=== PATIENT | female | born 1970 | race Caucasian/White ===

== ENCOUNTER 2017-05-25 10:02 | Inpatient (IN) | payer BC ==
[2017-05-25] MEDS ORDERED: ONDANSETRON 4 MG/2 ML VIAL IVP STA (10:35)
[2017-05-25] MEDS ORDERED: SODIUM CHLORIDE 0.9% 2,000 ML IV STA (10:35)
[2017-05-25 11:20] LABS: Albumin 5.3 g/dL (3.5-5.0); Potassium 3.2 mmol/L (3.5-5.1); Total Bilirubin 2.3 mg/dL (0.2-1.3)
[2017-05-25 11:30] LABS: Basophils % (A) 0 %; Eosinophils % (A) 0 %; HCT 41.9 % (34.0-46.0); HGB 13.6 gm/dL (11.4-16.0); Lymphocytes # (A) 0.4 k/uL (1.0-4.8); Lymphocytes % (A) 4 %; MCH 35.1 pg (25.0-35.0); MCHC 32.6 g/dL (31.0-37.0); MCV 107.9 fL (80.0-100.0); Macrocytosis Moderate; Mean Platelet Volume 9.3; Monocytes # (A) 0.6 k/uL (0-1.0); Monocytes % (A) 6 %; Neutrophils # (A) 9.6 k/uL (1.3-7.7); Neutrophils % (A) 89 %; Platelet Count 136 k/uL (150-450); RBC 3.88 m/uL (3.80-5.40); WBC 10.8 k/uL (3.8-10.6)
--- NOTE | 2017-05-25 12:46 | ED ---
Nausea/Vomiting/Diarrhea HPI - General Source: patient, RN notes reviewed Mode of arrival: ambulatory Limitations: no limitations <Heri Loomis - Last Filed: 05/25/17 13:43> <Rivera Fong - Last Filed: 05/25/17 13:46> - General Chief complaint: Nausea/Vomiting/Diarrhea Stated complaint: Flu Time Seen by Provider: 05/25/17 10:20 - History of Present Illness Initial comments: This a 46-year-old female presents emergency Department chief complaint of nausea vomiting for 4 days. Patient does complain of some mild upper abdominal pain states the pain started after her vomiting episodes. She states that she' s basically been dry heaving or vomiting up anything she tries to drink. Patient denies fever, chills. She does admit to history of alcohol abuse she states currently she drinks 3 times weekly. Patient denies any fever, chills, chest pain, shortness breath, diarrhea, constipation, dysuria or hematuria. ( Heri Loomis) - Related Data Home Medications Medication Instructions Recorded Confirmed No Known Home Medications [No 05/25/17 05/25/17 Known Home Medications] Allergies Allergy/AdvReac Type Severity Reaction Status Date / Time No Known Allergies Allergy Verified 05/25/17 10:33 Review of Systems ROS Other: All systems not noted in ROS Statement are negative. <Heri Loomis - Last Filed: 05/25/17 13:43> ROS Other: All systems not noted in ROS Statement are negative. <Rivera Fong - Last Filed: 05/25/17 13:46> ROS Statement: Those systems with pertinent positive or pertinent negative responses have been documented in the HPI. Past Medical History Past Medical History: No Reported History History of Any Multi-Drug Resistant Organisms: None Reported Past Surgical History: No Surgical Hx Reported Past Psychological History: No Psychological Hx Reported Smoking Status: Never smoker Past Alcohol Use History: Daily Past Drug Use History: None Reported <Heri Loomis - Last Filed: 05/25/17 13:43> General Exam Limitations: no limitations General appearance: alert, in no apparent distress Head exam: Present: atraumatic, normocephalic, normal inspection Eye exam: Present: normal appearance, PERRL, EOMI. Absent: scleral icterus, conjunctival injection, periorbital swelling Respiratory exam: Present: normal lung sounds bilaterally. Absent: respiratory distress, wheezes, rales, rhonchi, stridor Cardiovascular Exam: Present: regular rate, normal rhythm, normal heart sounds. Absent: systolic murmur, diastolic murmur, rubs, gallop, clicks GI/Abdominal exam: Present: soft, tenderness (Mild upper abdominal tenderness), normal bowel sounds. Absent: distended, guarding, rebound, rigid Back exam: Absent: CVA tenderness (R), CVA tenderness (L) Skin exam: Present: warm, dry, intact, normal color. Absent: rash <Heri Loomis - Last Filed: 05/25/17 13:43> Course <Heri Loomis - Last Filed: 05/25/17 13:43> <Rivera Fong - Last Filed: 05/25/17 13:46> Vital Signs 05/25/17 05/25/17 10:24 12:26 Temperature 97.8 F 99.8 F H Pulse Rate 133 H 115 H Respiratory 20 18 Rate Blood Pressure 143/97 143/97 O2 Sat by Pulse 100 98 Oximetry - Reevaluation(s) Reevaluation #1: 05/25/17 13:44 PA supervision: I did personally do a [id number] evaluation of this patient and did discuss the findings with her. Patient does present with symptoms consistent with acute pancreatitis, she states she drinks about 4 drinks 4 days a week. She denies any history of alcohol withdrawal syndromes. The case was discussed with the hospitalist. Patient will be admitted and do agree with the assessment and plan. Ultrasound was reviewed somewhat limited correlate for hepatic steatosis there may be sludge, a hearing stone within the gallbladder, consider follow-up to exclude a soft tissue mass. (Rivera Fong) Medical Decision Making - Lab Data Result diagrams: 05/25/17 10:54 05/25/17 10:54 <Heri Loomis - Last Filed: 05/25/17 13:43> - Lab Data Result diagrams: 05/25/17 10:54 05/25/17 10:54 <Rivera Fong - Last Filed: 05/25/17 13:46> - Lab Data Lab Results 05/25/17 05/25/17 05/25/17 Range/Units 10:54 10:54 10:54 WBC 10.8 H (3.8-10.6) k/uL RBC 3.88 (3.80-5.40) m/uL Hgb 13.6 (11.4-16.0) gm/dL Hct 41.9 (34.0-46.0) % MCV 107.9 H (80.0-100.0) fL MCH 35.1 H (25.0-35.0) pg MCHC 32.6 (31.0-37.0) g/dL RDW 13.0 (11.5-15.5) % Plt Count 136 L (150-450) k/uL Neutrophils % 89 % Lymphocytes % 4 % Monocytes % 6 % Eosinophils % 0 % Basophils % 0 % Neutrophils # 9.6 H (1.3-7.7) k/uL Lymphocytes # 0.4 L (1.0-4.8) k/uL Monocytes # 0.6 (0-1.0) k/uL Eosinophils # 0.0 (0-0.7) k/uL Basophils # 0.0 (0-0.2) k/uL Macrocytosis Moderate Sodium 141 (137-145) mmol/L Potassium 3.2 L (3.5-5.1) mmol/L Chloride 89 L (98-107) mmol/L Carbon Dioxide 15 L (22-30) mmol/L Anion Gap 37 mmol/L BUN 21 H (7-17) mg/dL Creatinine 1.39 H (0.52-1.04) mg/dL Est GFR (MDRD) Af Amer 49 (>60 ml/min/1.73 sqM) Est GFR (MDRD) Non-Af 41 (>60 ml/min/1.73 sqM) Glucose 184 H (74-99) mg/dL Calcium 11.0 H (8.4-10.2) mg/dL Total Bilirubin 2.3 H (0.2-1.3) mg/dL AST 103 H (14-36) U/L ALT 49 (9-52) U/L Alkaline Phosphatase 115 (38-126) U/L Total Protein 9.0 H (6.3-8.2) g/dL Albumin 5.3 H (3.5-5.0) g/dL Amylase 181 H (30-110) U/L Lipase 2400 H (23-300) U/L Disposition <Heri Loomis - Last Filed: 05/25/17 13:43> <Rivera Fong - Last Filed: 05/25/17 13:46> Clinical Impression: Dehydration, Acute renal failure, Acute pancreatitis, Alcohol abuse Disposition: ADMITTED IP TO THIS HOSP Condition: Fair Referrals: Heri Colbert DO [Primary Care Provider] - 1-2 days
--- NOTE | 2017-05-25 13:37 | US ---
EXAMINATION TYPE: US abdomen limited DATE OF EXAM: 05/25/2017 COMPARISON: NONE CLINICAL HISTORY: Pain. EXAM MEASUREMENTS: Liver Length: 12.6 cm Gallbladder Wall: 0.2 cm CBD: 0.2 cm Right Kidney: 11.7 x 5.1 x 5.3 cm Pancreas: Tail obscured by overlying bowel gas Liver: Increased attenuation, decreased visualization of vessels suggestive of fatty infiltrate Gallbladder: fundal portion of gallbladder shows non mobile structure with no shadowing Evidence for sonographic Maguire's sign: none CBD: wnl Right Kidney: wnl IMPRESSION: Exam somewhat limited. Correlate for hepatic steatosis. There may be tumefactive sludge, adherent stone within the gallbladder, consider follow-up to exclude soft tissue mass
[2017-05-25] MEDS ORDERED: POTASSIUM CHLORIDE 20 MEQ in SODIUM CHLORIDE 0.9% 100 ML IVPB STA (13:39)
[2017-05-25] MEDS ORDERED: LORazepam 2 MG/ML INJ IV PRN ×3 (13:40)
[2017-05-25] MEDS ORDERED: ONDANSETRON 4 MG/2 ML VIAL IVP PRN (13:44)
[2017-05-25] MEDS ORDERED: NALOXONE 0.4 MG/ML 1 ML VIAL IV PRN (13:44)
[2017-05-25 14:51] LABS: Amorphous Sediment,Urine Occasional /hpf; Appearance,Urine Cloudy (Clear); Bacteria,Urine Rare /hpf; Bilirubin,Urine 2+ (Negative); Blood,Urine Moderate (Negative); Color,Urine Orange; Glucose,Urine (UA) Trace (Negative); Hyaline Casts,Urine 957 /lpf (0-2); Ketones,Urine 4+ (Negative); Leukocyte Esterase,Urine Trace (Negative); Mucus,Urine Many /hpf; Nitrite,Urine Negative (Negative); PH, Urine 6.5 (5.0-8.0); Protein,Urine 4+ (Negative); RBC,Urine 4 /hpf (0-5); Specific Gravity,Urine 1.025 (1.001-1.035); Squamous Epithelial Cell,Urine 15 /hpf (0-4); WBC,Urine 23 /hpf (0-5)
[2017-05-25] MEDS ORDERED: INFLUENZA VACCINE (6 MOS+) 60 MCG/0.5 ML SYRINGE IM ONE (15:13)
[2017-05-25] MEDS: HYDROmorphone 0.5 MG/0.5 ML SYRINGE IVP PRN ×3 (16:49→23:29)
[2017-05-25] MEDS: SODIUM CHLORIDE 0.9% 1,000 ML IV SCH (16:53)
[2017-05-25] MEDS: THIAMINE 100 MG TAB PO SCH (18:29)
--- NOTE | 2017-05-25 21:47 | P.HPIM ---
History of Present Illness H&P Date: 05/25/17 Chief Complaint: Nausea vomiting Patient is a 46-year-old female with a known history of alcohol abuse about 3-4 days a week came to the hospital with complaints of nausea and vomiting and unable to keep down any foods for the past 2 days. Patient also having epigastric abdominal pain. Denied any radiation to the back. Patient states that the pain started after her vomiting episodes. She states that she's basically been dry heaving or vomiting up anything she tries to drink. She does admit to history of alcohol abuse she states currently she drinks 3-4 times weekly. Patient denies any fever, chills, chest pain, shortness breath, diarrhea, constipation, dysuria or hematuria. Last drink about 3-4 days ago. Lipase 2400, elevated AST Review of Systems Constitutional: Patient denies any fever or chills . No generalized weakness or weight loss. Abdomen: A suero does have nausea vomiting and abdominal pain epigastric. Cardiovascular: Patient denies any chest pain or short of breath no palpitations. Respiratory: patient denied any cough is from production. No shortness of breath Neurologic: Patient denied any numbness or tingling headache. Musculoskeletal: Patient denies any complaints of joint swelling or deformity. Skin: Negative Psychiatric: Negative Endocrine: No heat or cold intolerance. No recent weight gain. Genitourinary: No dysuria or hematuria. All other 14 point ROS negative except the above Past Medical History Past Medical History: No Reported History Additional Past Medical History / Comment(s): pt stated in past bp was elevated but no meds but since losing weight bp improved. also in past took meds for thyroid stopped few months ago History of Any Multi-Drug Resistant Organisms: None Reported Past Surgical History: No Surgical Hx Reported Additional Past Surgical History / Comment(s): pt denies any sx hx. Past Psychological History: No Psychological Hx Reported Additional Psychological History / Comment(s): pt lives with spouse and 2 children in 2 story home that has 2 porch steps. 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 Smoking Status: Former smoker Past Alcohol Use History: Heavy Additional Past Alcohol Use History / Comment(s): pt started smoking at age 14( 1984) and quit age 23(1993) was smoking 2 ppd. pt stated she does'nt drink daily , maybe 3-4 times a week but takes in aprox 16 drinks per week Past Drug Use History: None Reported - Past Family History Mother Family Medical History: No Reported History Father Family Medical History: Coronary Artery Disease (CAD) Additional Family Medical History / Comment(s): cardiac stents Medications and Allergies Home Medications Medication Instructions Recorded Confirmed Type No Known Home Medications [No 05/25/17 05/25/17 History Known Home Medications] Allergies Allergy/AdvReac Type Severity Reaction Status Date / Time No Known Allergies Allergy Verified 05/25/17 10:33 Physical Exam Vitals: Vital Signs Temp Pulse Pulse Resp BP BP Pulse Ox 05/25/17 15:59 98.4 F 115 H 18 131/95 99 05/25/17 15:27 98.4 F 115 H 18 131/95 99 05/25/17 14:39 98.0 F 114 H 18 153/88 98 05/25/17 12:26 99.8 F H 115 H 18 143/97 98 05/25/17 10:24 97.8 F 133 H 20 143/97 100 Intake and Output 05/25/17 05/25/17 05/25/17 06:59 14:59 22:59 Other: Weight 72.575 kg Patient Weight 05/26/17 06:59 Weight 72.575 kg PHYSICAL EXAMINATION: Patient is lying in the bed comfortably, no acute distress, awake alert and oriented.. HEENT: Normocephalic. Neck is supple. Pupils reactive. Nostrils clear. Oral cavity is moist. Ears reveal no drainage. Neck reveals no JVD, carotid bruits, or thyromegaly. CHEST EXAMINATION: Trachea is central. Symmetrical expansion. Lung riojas clear to auscultation and percussion. CARDIAC: Normal S1, S2 with no gallops. No murmurs ABDOMEN: Soft. Mild epigastric tenderness. Bowel sounds normal. No organomegaly. No abdominal bruits. Extremities: reveal no edema. No clubbing or cyanosis Neurologically awake, alert, oriented x3 with well-coordinated movements. No focal deficits noted Skin: No rash or skin lesions. Psychiatric: Coperative. Nonsuicidal Musculoskeletal: No joint swelling or deformity. Normal range of motion. Results CBC & Chem 7: 05/25/17 10:54 05/25/17 10:54 Labs: Abnormal Lab Results - Last 24 Hours (Table) 05/25/17 05/25/17 05/25/17 Range/Units 10:54 10:54 10:54 WBC 10.8 H (3.8-10.6) k/uL MCV 107.9 H (80.0-100.0) fL MCH 35.1 H (25.0-35.0) pg Plt Count 136 L (150-450) k/uL Neutrophils # 9.6 H (1.3-7.7) k/uL Lymphocytes # 0.4 L (1.0-4.8) k/uL Potassium 3.2 L (3.5-5.1) mmol/L Chloride 89 L (98-107) mmol/L Carbon Dioxide 15 L (22-30) mmol/L BUN 21 H (7-17) mg/dL Creatinine 1.39 H (0.52-1.04) mg/dL Glucose 184 H (74-99) mg/dL Calcium 11.0 H (8.4-10.2) mg/dL Magnesium (1.6-2.3) mg/dL Total Bilirubin 2.3 H (0.2-1.3) mg/dL AST 103 H (14-36) U/L Total Protein 9.0 H (6.3-8.2) g/dL Albumin 5.3 H (3.5-5.0) g/dL Amylase 181 H (30-110) U/L Lipase 2400 H (23-300) U/L Urine Appearance (Clear) Urine Protein (Negative) Urine Glucose (UA) (Negative) Urine Ketones (Negative) Urine Blood (Negative) Urine Bilirubin (Negative) Ur Leukocyte Esterase (Negative) Urine WBC (0-5) /hpf Ur Squamous Epith Cells (0-4) /hpf Amorphous Sediment (None) /hpf Urine Bacteria (None) /hpf Hyaline Casts (0-2) /lpf Urine Mucus (None) /hpf 05/25/17 05/25/17 Range/Units 10:54 14:25 WBC (3.8-10.6) k/uL MCV (80.0-100.0) fL MCH (25.0-35.0) pg Plt Count (150-450) k/uL Neutrophils # (1.3-7.7) k/uL Lymphocytes # (1.0-4.8) k/uL Potassium (3.5-5.1) mmol/L Chloride (98-107) mmol/L Carbon Dioxide (22-30) mmol/L BUN (7-17) mg/dL Creatinine (0.52-1.04) mg/dL Glucose (74-99) mg/dL Calcium (8.4-10.2) mg/dL Magnesium 1.3 L (1.6-2.3) mg/dL Total Bilirubin (0.2-1.3) mg/dL AST (14-36) U/L Total Protein (6.3-8.2) g/dL Albumin (3.5-5.0) g/dL Amylase (30-110) U/L Lipase (23-300) U/L Urine Appearance Cloudy H (Clear) Urine Protein 4+ H (Negative) Urine Glucose (UA) Trace H (Negative) Urine Ketones 4+ H (Negative) Urine Blood Moderate H (Negative) Urine Bilirubin 2+ H (Negative) Ur Leukocyte Esterase Trace H (Negative) Urine WBC 23 H (0-5) /hpf Ur Squamous Epith Cells 15 H (0-4) /hpf Amorphous Sediment Occasional H (None) /hpf Urine Bacteria Rare H (None) /hpf Hyaline Casts 957 H (0-2) /lpf Urine Mucus Many H (None) /hpf Thrombosis Risk Factor Assmnt - DVT/VTE Prophylaxis DVT/VTE Prophylaxis: Pharmacologic Prophylaxis ordered Assessment and Plan Assessment: Acute pancreatitis Severe anion gap metabolic acidosis Alcohol abuse 12 cans 3-4 times weekly Hypomagnesemia and hypokalemia Elevated AST Hyperbilirubinemia Acute kidney injury most likely prerenal DVT prophylaxis Plan: Patient be continued on IV fluids and pain medications. Symptomatic management for nausea and vomiting. Continue with thiamine and multivitamins. Will repeat labs tonight and follow-up again tomorrow. Further recommendations based on the clinical course. Patient has been counseled extensively for alcohol abuse Time with Patient: Greater than 30
[2017-05-25 22:00] LABS: Anion Gap 20 mmol/L; Blood Urea Nitrogen 23 mg/dL (7-17); Carbon Dioxide 24 mmol/L (22-30); Chloride 96 mmol/L (98-107); Glucose 116 mg/dL (74-99); Potassium 3.7 mmol/L (3.5-5.1); Sodium 140 mmol/L (137-145)
[2017-05-26] MEDS: SODIUM CHLORIDE 0.9% 1,000 ML IV SCH ×3 (05:39→12:59)
[2017-05-26] MEDS: PANTOPRAZOLE 40 MG/10 ML VIAL IV SCH (07:55)
[2017-05-26] MEDS: THIAMINE 100 MG TAB PO SCH ×2 (07:55→16:25)
[2017-05-26] MEDS: HYDROmorphone 0.5 MG/0.5 ML SYRINGE IVP PRN ×5 (07:56→22:38)
[2017-05-26 08:37] LABS: Amylase 85 U/L (30-110); Anion Gap 16 mmol/L; Blood Urea Nitrogen 21 mg/dL (7-17); Calcium 9.5 mg/dL (8.4-10.2); Carbon Dioxide 27 mmol/L (22-30); Chloride 98 mmol/L (98-107); Glucose 97 mg/dL (74-99); Lipase 1034 U/L (23-300); Potassium 3.6 mmol/L (3.5-5.1); Sodium 141 mmol/L (137-145)
[2017-05-26 09:15] LABS: Basophils % (A) 1 %; Eosinophils % (A) 0 %; HCT 34.6 % (34.0-46.0); HGB 11.8 gm/dL (11.4-16.0); Lymphocytes % (A) 14 %; MCH 36.6 pg (25.0-35.0); MCHC 34.1 g/dL (31.0-37.0); MCV 107.1 fL (80.0-100.0); Macrocytosis Moderate; Mean Platelet Volume 8.8; Monocytes # (A) 0.4 k/uL (0-1.0); Monocytes % (A) 5 %; Neutrophils # (A) 5.9 k/uL (1.3-7.7); Neutrophils % (A) 79 %; Platelet Count 100 k/uL (150-450); RBC 3.23 m/uL (3.80-5.40); RDW 12.9 % (11.5-15.5); WBC 7.4 k/uL (3.8-10.6)
--- NOTE | 2017-05-26 11:16 | P.CONS ---
History of Present Illness - Reason for Consult Consult date: 05/26/17 pancreatitis Requesting physician: Deandre Sr - History of Present Illness 46-year-old female with a history of long-standing EtOH abuse drinks 3-4 days a week 3-4 drinks on each occasion mixture of beer and liquor. Patient presents with 4 day history of nausea vomiting upper abdominal pain with elevated pancreatic enzymes consistent with acute pancreatitis. No history of documented pancreatitis. Denies fever chills hematemesis hematochezia melena. No history of hepatitis. admission white count 10.8 presently 7.4. Hemoglobin 11.8. Platelet 100,000. MCV 107. BUN 21 creatinine 1.3. Creatinine today 0.5. Total bilirubin 2.3. AST 103. ALT 49. Alkaline phosphatase 1:15. Lipase 2400. Amylase 181. Today lipase is improving 1034. Amylase 85. LFTs not available to review. ultrasound abdomen correlate for hepatic steatosis. Possible tumefactive sludge adherent stone within the gallbladder. CBD 0.2 cm. Liver length 12.6 cm. Gallbladder wall 0.2 cm. Review of Systems Constitutional: Denies fever, chills, sweats, weight gain, or loss. HEENT: Negative for migraines, blurred vision or loss, earaches, drainage, tinnitus, oral mucosal lesions, dysphagia, or odynophagia. CARDIAC: Negative for chest pain, arrhythmias, or palpitation. RESPIRATORY: Negative for shortness of breath, hemoptysis, cough, or sputum production. GI: See HPI for pertinent findings. : Negative for hematuria, urgency, frequency, polyuria, or dysuria. GYNc: Denies possibility of . Negative vaginal discharge. MUSCULOSKELETAL: Negative for muscle aches, swelling, arthritis, and arthralgias. NEUROLOGIC: Negative for stroke or TIA. ENDOCRINE: Negative for thyroid problems. SKIN: Negative for rash or itching. PSYCHIATRIC: Negative history for depression and anxiety Past Medical History Past Medical History: No Reported History Additional Past Medical History / Comment(s): pt stated in past bp was elevated but no meds but since losing weight bp improved. also in past took meds for thyroid stopped few months ago History of Any Multi-Drug Resistant Organisms: None Reported Past Surgical History: No Surgical Hx Reported Additional Past Surgical History / Comment(s): pt denies any sx hx. Past Psychological History: No Psychological Hx Reported Additional Psychological History / Comment(s): pt lives with spouse and 2 children in 2 story home that has 2 porch steps. 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 Smoking Status: Former smoker Past Alcohol Use History: Heavy Additional Past Alcohol Use History / Comment(s): pt started smoking at age 14( 1984) and quit age 23(1993) was smoking 2 ppd. pt stated she does'nt drink daily , maybe 3-4 times a week but takes in aprox 16 drinks per week Past Drug Use History: None Reported - Past Family History Mother Family Medical History: No Reported History Father Family Medical History: Coronary Artery Disease (CAD) Additional Family Medical History / Comment(s): cardiac stents Medications and Allergies Home Medications Medication Instructions Recorded Confirmed Type No Known Home Medications [No 05/25/17 05/25/17 History Known Home Medications] Allergies Allergy/AdvReac Type Severity Reaction Status Date / Time No Known Allergies Allergy Verified 05/25/17 10:33 Physical Exam Vitals: Vital Signs Temp Pulse Pulse Resp BP BP Pulse Ox 05/26/17 07:00 97.4 F L 109 H 18 138/83 98 05/26/17 00:00 105 H 18 05/25/17 21:49 98 F 105 H 18 121/81 97 05/25/17 16:33 18 05/25/17 15:59 98.4 F 115 H 18 131/95 99 05/25/17 15:27 98.4 F 115 H 18 131/95 99 05/25/17 14:39 98.0 F 114 H 18 153/88 98 05/25/17 12:26 99.8 F H 115 H 18 143/97 98 Intake and Output 05/25/17 05/26/17 05/26/17 22:59 06:59 14:59 Intake Total 700 Balance 700 Intake: Intake, IV Titration 700 Amount Sodium Chloride 0.9% 1, 700 000 ml @ 100 mls/hr IV . Q10H [facility] Rx#:[id number] Other: # Voids 1 1 General appearance: The patient is alert, oriented, in no acute distress. HET: Head is normocephalic and atraumatic. Pupils are equal and reactive. Oropharynx is clear without lesions. Neck: Supple without lymphadenopathy. Trachea midline. Heart: S1 S2. Regular rate and rhythm. Lungs: No crackles or wheezes are heard. Abdomen: Soft, mild tenderness midepigastrium left upper quadrant, nondistended with bowel sounds. No peritoneal signs. No palpable organomegaly or masses. Extremities: Normal skin color and turgor. No cyanosis, rash, ulceration, clubbing, or edema. Radial and pedal pulses are 2/4 bilaterally. Neurological: No focal deficits. Strength and sensation are grossly intact. Results CBC & Chem 7: 05/26/17 07:54 05/26/17 07:54 Labs: Abnormal Lab Results - Last 24 Hours (Table) 05/25/17 05/25/17 05/25/17 Range/Units 10:54 10:54 10:54 WBC 10.8 H (3.8-10.6) k/uL RBC (3.80-5.40) m/uL MCV 107.9 H (80.0-100.0) fL MCH 35.1 H (25.0-35.0) pg Plt Count 136 L (150-450) k/uL Neutrophils # 9.6 H (1.3-7.7) k/uL Lymphocytes # 0.4 L (1.0-4.8) k/uL Potassium 3.2 L (3.5-5.1) mmol/L Chloride 89 L (98-107) mmol/L Carbon Dioxide 15 L (22-30) mmol/L BUN 21 H (7-17) mg/dL Creatinine 1.39 H (0.52-1.04) mg/dL Glucose 184 H (74-99) mg/dL Calcium 11.0 H (8.4-10.2) mg/dL Magnesium (1.6-2.3) mg/dL Total Bilirubin 2.3 H (0.2-1.3) mg/dL AST 103 H (14-36) U/L Total Protein 9.0 H (6.3-8.2) g/dL Albumin 5.3 H (3.5-5.0) g/dL Amylase 181 H (30-110) U/L Lipase 2400 H (23-300) U/L Urine Appearance (Clear) Urine Protein (Negative) Urine Glucose (UA) (Negative) Urine Ketones (Negative) Urine Blood (Negative) Urine Bilirubin (Negative) Ur Leukocyte Esterase (Negative) Urine WBC (0-5) /hpf Ur Squamous Epith Cells (0-4) /hpf Amorphous Sediment (None) /hpf Urine Bacteria (None) /hpf Hyaline Casts (0-2) /lpf Urine Mucus (None) /hpf 05/25/17 05/25/17 05/25/17 Range/Units 10:54 14:25 21:40 WBC (3.8-10.6) k/uL RBC (3.80-5.40) m/uL MCV (80.0-100.0) fL MCH (25.0-35.0) pg Plt Count (150-450) k/uL Neutrophils # (1.3-7.7) k/uL Lymphocytes # (1.0-4.8) k/uL Potassium (3.5-5.1) mmol/L Chloride 96 L (98-107) mmol/L Carbon Dioxide (22-30) mmol/L BUN 23 H (7-17) mg/dL Creatinine (0.52-1.04) mg/dL Glucose 116 H (74-99) mg/dL Calcium (8.4-10.2) mg/dL Magnesium 1.3 L (1.6-2.3) mg/dL Total Bilirubin (0.2-1.3) mg/dL AST (14-36) U/L Total Protein (6.3-8.2) g/dL Albumin (3.5-5.0) g/dL Amylase (30-110) U/L Lipase (23-300) U/L Urine Appearance Cloudy H (Clear) Urine Protein 4+ H (Negative) Urine Glucose (UA) Trace H (Negative) Urine Ketones 4+ H (Negative) Urine Blood Moderate H (Negative) Urine Bilirubin 2+ H (Negative) Ur Leukocyte Esterase Trace H (Negative) Urine WBC 23 H (0-5) /hpf Ur Squamous Epith Cells 15 H (0-4) /hpf Amorphous Sediment Occasional H (None) /hpf Urine Bacteria Rare H (None) /hpf Hyaline Casts 957 H (0-2) /lpf Urine Mucus Many H (None) /hpf 05/26/17 05/26/17 Range/Units 07:54 07:54 WBC (3.8-10.6) k/uL RBC 3.23 L (3.80-5.40) m/uL MCV 107.1 H (80.0-100.0) fL MCH 36.6 H (25.0-35.0) pg Plt Count 100 L (150-450) k/uL Neutrophils # (1.3-7.7) k/uL Lymphocytes # (1.0-4.8) k/uL Potassium (3.5-5.1) mmol/L Chloride (98-107) mmol/L Carbon Dioxide (22-30) mmol/L BUN 21 H (7-17) mg/dL Creatinine (0.52-1.04) mg/dL Glucose (74-99) mg/dL Calcium (8.4-10.2) mg/dL Magnesium (1.6-2.3) mg/dL Total Bilirubin (0.2-1.3) mg/dL AST (14-36) U/L Total Protein (6.3-8.2) g/dL Albumin (3.5-5.0) g/dL Amylase (30-110) U/L Lipase 1034 H (23-300) U/L Urine Appearance (Clear) Urine Protein (Negative) Urine Glucose (UA) (Negative) Urine Ketones (Negative) Urine Blood (Negative) Urine Bilirubin (Negative) Ur Leukocyte Esterase (Negative) Urine WBC (0-5) /hpf Ur Squamous Epith Cells (0-4) /hpf Amorphous Sediment (None) /hpf Urine Bacteria (None) /hpf Hyaline Casts (0-2) /lpf Urine Mucus (None) /hpf US - abdomen: report reviewed (dr. Aldana) Assessment and Plan (1) Acute pancreatitis Narrative/Plan: suspect alcohol pancreatitis Current Visit: Yes Status: Acute Code(s): K85.90 - ACUTE PANCREATITIS WITHOUT NECROSIS OR INFECTION, UNSP SNOMED Code(s): 652769438 (2) Hepatitis Narrative/Plan: mild hyperbilirubinemia with elevated AST suspect acute alcohol hepatitis Current Visit: Yes Status: Acute Code(s): K75.9 - INFLAMMATORY LIVER DISEASE , UNSPECIFIED SNOMED Code(s): 915028874 (3) Alcohol abuse Current Visit: Yes Status: Acute Code(s): F10.10 - ALCOHOL ABUSE, UNCOMPLICATED SNOMED Code(s): 75308957 Plan: 1. Pancreatic enzymes improving we'll start clear liquids and advance as tolerated. Repeat enzymes in a.m. Alcohol abstinence was advised. GI prophylaxis. We'll follow with you. Thank you for this kind referral and the opportunity to participate in the care of your patient. This consultation was discussed with Dr. Aldana. The impression and plan of care have been directed as dictated.
[2017-05-26 11:36] VITALS: BMI 30.2
--- NOTE | 2017-05-26 20:46 | PN ---
PROGRESS NOTE DATE OF SERVICE: 05/26/2017 BRIEF HISTORY: This patient is a 46-year-old female patient with longstanding history of alcohol abuse who drinks 3-4 days out of a week, presented to ED with a complaint of upper abdominal pain, nausea and vomiting. The patient's workup was consistent with acute pancreatitis. The patient is admitted for further treatment and evaluation. The patient is seen in her room. She is awake, alert and oriented. She is in no acute distress. VITAL SIGNS: Temperature 97.4, pulse 109, respirations 18, blood pressure 138/83, O2 saturation of 98. HEENT: Atraumatic, normocephalic. Pupils equal and reactive to light. Extraocular movements intact. Buccal mucosa is fair. Neck is supple without any any goiter, lymphadenopathy. JVD is negative. No carotid bruit heard. RESPIRATORY: Lungs are clear to auscultate. No rales, rhonchi or wheezes. CARDIOVASCULAR: Heart is regular rate and rhythm without any murmurs, gallop rhythm. GI/ABDOMEN: Abdomen is soft. Mild diffuse tenderness, mostly in the epigastric and left upper quadrant area. Nondistended. No guarding, rigidity. Bowel sounds are positive. EXTREMITIES: No edema, clubbing or cyanosis. Pulses are palpable. NEUROLOGICAL: Patient is awake, alert, oriented x3. Cranial nerves 2-12 grossly intact. No gross motor sensory deficit. MUSCULOSKELETAL: Patient moves all 4 extremities. There are no muscle or joint deformities. Skin is intact, warm and dry. LYMPHATICS: No lymph node palpable in the neck or axillary area. LABS: CBC: White blood count of 7.4, hemoglobin 11.8, hematocrit 34.6, and platelet count of 100. Chemical profile: Sodium 141, potassium 3.6, chloride 98, bicarb 27, BUN 21, creatinine 0.5, glucose of 97. MCV is elevated at 107.9. ASSESSMENT: 1. Acute pancreatitis. 2. Severe anion gap metabolic acidosis. 3. Alcohol abuse. 4. Hypomagnesemia and hypokalemia. 5. Transaminitis. 6. Hyperbilirubinemia. 7. Acute renal injury, most likely prerenal azotemia secondary to alcohol abuse. PLAN: 1. To continue with the IV fluids and the pain control. Monitor I's and O's. Monitor renal function and electrolytes. Symptomatic management for pain, nausea and vomiting. The patient is continued on thiamine and multivitamins. Will repeat followup labs for tomorrow morning. Will repeat electrolytes, CBC, lipase levels and also B12 and folic acid levels. Will repeat electrolytes and BUN, creatinine. Detailed counseling done on alcohol abuse. Patient is receptive and wants to quit drinking. 2. GI and DVT prophylaxis. Will continue current management. Await further recommendations from GI. MMODL / IJN: [id number] /
[2017-05-27] MEDS: SODIUM CHLORIDE 0.9% 1,000 ML IV SCH (00:15)
[2017-05-27] MEDS: HYDROmorphone 0.5 MG/0.5 ML SYRINGE IVP PRN ×2 (07:00→11:13)
[2017-05-27] MEDS: PANTOPRAZOLE 40 MG/10 ML VIAL IV SCH (07:02)
[2017-05-27 08:54] LABS: ALT 52 U/L (9-52); AST 102 U/L (14-36); Albumin 3.5 g/dL (3.5-5.0); Alkaline Phosphatase 71 U/L (38-126); Anion Gap 13 mmol/L; Bilirubin, Delta 0.7 mg/dL (0.0-0.2); Bilirubin,Unconjugated 0.7 mg/dL (0.0-1.1); Blood Urea Nitrogen 12 mg/dL (7-17); Calcium 9.1 mg/dL (8.4-10.2); Carbon Dioxide 28 mmol/L (22-30); Chloride 96 mmol/L (98-107); Glucose 111 mg/dL (74-99); Lipase 689 U/L (23-300); Sodium 137 mmol/L (137-145); Total Bilirubin 1.4 mg/dL (0.2-1.3); Total Protein 6.3 g/dL (6.3-8.2)
[2017-05-27 08:58] LABS: Potassium 2.6 mmol/L (3.5-5.1)
[2017-05-27 08:59] LABS: Basophils % (A) 0 %; Eosinophils % (A) 1 %; HCT 33.6 % (34.0-46.0); HGB 10.8 gm/dL (11.4-16.0); Lymphocytes # (A) 0.7 k/uL (1.0-4.8); Lymphocytes % (A) 16 %; MCH 35.5 pg (25.0-35.0); Macrocytosis Marked; Mean Platelet Volume 9.4; Monocytes # (A) 0.3 k/uL (0-1.0); Monocytes % (A) 7 %; Neutrophils # (A) 3.1 k/uL (1.3-7.7); Neutrophils % (A) 74 %; RBC 3.03 m/uL (3.80-5.40); RDW 13.8 % (11.5-15.5); WBC 4.1 k/uL (3.8-10.6)
[2017-05-27 10:42] LABS: Platelet Count 80 k/uL (150-450)
[2017-05-27] MEDS: POTASSIUM CHLORIDE 20 MEQ in SODIUM CHLORIDE 0.9% 100 ML IVPB SCH ×2 (10:52→14:31)
[2017-05-27] MEDS: 0.9% NACL WITH KCL 40 MEQ/L 1,000 ML IV SCH (10:52)
[2017-05-27] MEDS: POTASSIUM CHLORIDE ER 20 MEQ TAB.ER PO SCH ×2 (10:52→11:02)
[2017-05-27] MEDS: THIAMINE 100 MG TAB PO SCH ×2 (11:02→16:32)
--- NOTE | 2017-05-27 12:39 | P.PN ---
Subjective Progress Note Date: 05/27/17 Principal diagnosis: pancreatitis Feels better today but still reports generalized abdominal discomfort. [place] at enzymes improving. Tolerating full liquids. Afebrile. Objective - Vital Signs Vital signs: Vital Signs Temp 98.1 F 05/27/17 07:00 Pulse 95 05/27/17 08:00 Resp 16 05/27/17 08:00 BP 128/86 05/27/17 07:00 Pulse Ox 96 05/27/17 07:00 Intake & Output 05/26/17 05/27/17 05/27/17 18:59 06:59 18:59 Intake Total 800 1200 240 Balance 800 1200 240 Weight 72.575 kg Intake: Intake, IV Titration 800 1200 Amount Sodium Chloride 0.9% 1, 800 1200 000 ml @ 100 mls/hr IV . Q10H GAMALIEL Rx#:[id number] Oral 240 Other: Voiding Method Toilet Toilet # Voids 1 2 3 - Exam General appearance: The patient is alert, oriented, in no acute distress. HET: Head is normocephalic and atraumatic. Pupils are equal and reactive. Oropharynx is clear without lesions. Neck: Supple without lymphadenopathy. Trachea midline. Heart: S1 S2. Regular rate and rhythm. Lungs: No crackles or wheezes are heard. Abdomen: Soft, midepigastric left upper quadrant tenderness, nondistended with bowel sounds. No peritoneal signs. No palpable organomegaly or masses. Extremities: Normal skin color and turgor. No cyanosis, rash, ulceration, clubbing, or edema. Radial and pedal pulses are 2/4 bilaterally. Neurological: No focal deficits. Strength and sensation are grossly intact. - Labs CBC & Chem 7: 05/27/17 08:19 05/27/17 08:19 Labs: Abnormal Lab Results - Last 24 Hours (Table) 05/27/17 05/27/17 Range/Units 08:19 08:19 RBC 3.03 L (3.80-5.40) m/uL Hgb 10.8 L (11.4-16.0) gm/dL Hct 33.6 L (34.0-46.0) % MCV 111.0 H (80.0-100.0) fL MCH 35.5 H (25.0-35.0) pg Plt Count 80 L (150-450) k/uL Lymphocytes # 0.7 L (1.0-4.8) k/uL Potassium 2.6 L* (3.5-5.1) mmol/L Chloride 96 L (98-107) mmol/L Creatinine 0.48 L (0.52-1.04) mg/dL Glucose 111 H (74-99) mg/dL Total Bilirubin 1.4 H (0.2-1.3) mg/dL Delta Bilirubin 0.7 H (0.0-0.2) mg/dL AST 102 H (14-36) U/L Lipase 689 H (23-300) U/L Assessment and Plan (1) Acute pancreatitis Narrative/Plan: suspect alcohol pancreatitis Current Visit: Yes Status: Acute Code(s): K85.90 - ACUTE PANCREATITIS WITHOUT NECROSIS OR INFECTION, UNSP SNOMED Code(s): 111521480 (2) Hepatitis Narrative/Plan: mild hyperbilirubinemia with elevated AST suspect acute alcohol hepatitis Current Visit: Yes Status: Acute Code(s): K75.9 - INFLAMMATORY LIVER DISEASE , UNSPECIFIED SNOMED Code(s): 350562584 (3) Alcohol abuse Current Visit: Yes Status: Acute Code(s): F10.10 - ALCOHOL ABUSE, UNCOMPLICATED SNOMED Code(s): 72160763 Plan: 1. Pancreatic enzymes improving we'll advance to low fat diet. Alcohol abstinence was advised. GI prophylaxis. Discharge per medicine. Assessment and plan of care discussed with Dr. Aldana
--- NOTE | 2017-05-27 15:32 | CDI ---
Acute ETOH Induced Pancreatitis Last Revision, April 2017 Documentation Clarification Form Date: 05/27/2017 2:56:00 PM From: Irena Peck RN, CCDS Admit Date: 05/25/2017 1:43:00 PM Patient Name: Valerio Gil Visit Number: [id number] Discharge Date: ATTENTION: The Clinical Documentation Specialists (CDI) and [facility] Coding Staff appreciate your assistance in clarifying documentation. Please respond to the clarification below the line at the bottom and electronically sign. The CDI & [facility] Coding staff will review the response and follow-up if needed. Please note: Queries are made part of the Legal Health Record. If you have any questions, please contact the author of this message via ITS. Dr. Radha Valencia Acute Pancreatitis is documented in your H/P and progress notes. Patient history/risk factors: Alcohol abuse, Former smoker Clinical Indicators: Present with complaints of nausea, vomiting upper abdominal pain with elevated pancreatic enzymes. Ultrasound Abdomen: Hepatic steatosis. there may be tunefactive sludge adherent stone within the gallbladder. Labs: Lipase 2400, Amylase 181, AST 103, ALT 49, Total Bilirubin 2.3 Vital Signs on admission: 143/97 133 20 97.8 100 % RA Treatment: IV Fluids Ativan IV PRN Zofran IV PRN, Dilaudid IV PRN Thiamine and MVI PO Monitor Lab GI Consult: History of long-standing alcohol abuse, elevated pancreatic enzymes consistent with acute pancreatitis suspect acute alcoholic pancreatitis. In your professional opinion, can the etiology of the Acute Pancreatitis be further specified as one of the following, if known? Etiology: Alcohol induced Biliary Gallstone Idiopathic Other, please specify Unable to determine Please continue to document in your progress notes and discharge summary in order to capture severity of illness and risk of mortality. Include clinical findings that support your diagnosis. MTDD
[2017-05-27 16:05] LABS: Folate, Serum 9.2 ng/mL
[2017-05-27 21:59] VITALS: RESP 18
--- NOTE | 2017-05-27 22:11 | PN ---
PROGRESS NOTE DATE OF SERVICE: 05/27/2017 The patient is sitting up in bed, claims she still has a significant amount of abdominal discomfort. VITAL SIGNS: Temperature of 99.1, pulse 73, respirations 16, blood pressure 123 /85, O2 saturation 97%. HEENT: Atraumatic, normocephalic. GENERAL: Patient is awake, alert, oriented x3. No acute distress. HEENT: Atraumatic, normocephalic. Pupils equal and reactive to light. Extraocular movements intact. Buccal mucosa is fair. Neck is supple. Lungs are clear to auscultate. No rales, rhonchi or wheezes. Heart is regular rate and rhythm without any murmurs or gallop rhythm. Abdomen is soft. Positive bilateral upper quadrant and epigastric area bowel sounds are positive. EXTREMITIES: No edema, clubbing or cyanosis. NEUROLOGICAL: Cranial nerves 2-12 grossly intact. No gross motor or sensory deficit. SKIN; without rashes or pigmentation. Chemical profile: Sodium 137, potassium 2.6, chloride 96, bicarb 28, BUN 12, creatinine 0.4 and glucose 111. CBC: White blood count of 4.1, hemoglobin 10.8 , hematocrit 33.6 and platelet count of 80. Lipase is down in 600s. ASSESSMENT: 1. Severe hypokalemia. 2. Thrombocytopenia. 3. Acute pancreatitis. 4. Alcohol abuse. 5. Severe anion gap metabolic acidosis. 6. Electrolyte imbalance, hypomagnesemia., severe hypokalemia. 7. Transaminitis. 8. Hyperbilirubinemia. 9. Acute renal injury, most likely prerenal. Patient is going to be continued on IV fluids. Will space IV pain medications. Will change to Dilaudid every 6 hours. Continue with symptomatic management. Continue with thiamine and multivitamins. Will continue to repeat electrolytes, lipase level. Possible discharge home tomorrow. MMODL / IJN: [id number] / JAMIL
[2017-05-28] MEDS: 0.9% NACL WITH KCL 40 MEQ/L 1,000 ML IV SCH ×3 (05:03→12:43)
[2017-05-28] MEDS: THIAMINE 100 MG TAB PO SCH (07:33)
[2017-05-28 08:32] VITALS: BP 160/102; PULSE 124; TEMP 97.9
[2017-05-28] MEDS ORDERED: PANTOPRAZOLE 40 MG TABLET PO SCH (09:00)
--- NOTE | 2017-05-28 10:01 | P.PN ---
Subjective Progress Note Date: 05/28/17 Principal diagnosis: pancreatitis Feels better today anticipating discharge. Tolerating low-fat diet. Pancreatic enzymes improved yesterday. No labs to review today. Afebrile. Objective - Vital Signs Vital signs: Vital Signs Temp 97.9 F 05/28/17 07:00 Pulse 124 H 05/28/17 08:00 Resp 18 05/28/17 08:00 BP 160/102 05/28/17 07:00 Pulse Ox 97 05/28/17 07:00 Intake & Output 05/27/17 05/28/17 05/28/17 18:59 06:59 18:59 Intake Total 240 Balance 240 Weight 72.575 kg Intake: Oral 240 Other: Voiding Method Toilet Toilet Toilet # Voids 3 2 3 - Exam General appearance: The patient is alert, oriented, in no acute distress. HET: Head is normocephalic and atraumatic. Pupils are equal and reactive. Oropharynx is clear without lesions. Neck: Supple without lymphadenopathy. Trachea midline. Heart: S1 S2. Regular rate and rhythm. Lungs: No crackles or wheezes are heard. Abdomen: Soft, mild midepigastric left upper quadrant tenderness, nondistended with bowel sounds. No peritoneal signs. No palpable organomegaly or masses. Extremities: Normal skin color and turgor. No cyanosis, rash, ulceration, clubbing, or edema. Radial and pedal pulses are 2/4 bilaterally. Neurological: No focal deficits. Strength and sensation are grossly intact. - Labs CBC & Chem 7: 05/27/17 08:19 05/27/17 17:50 Labs: Abnormal Lab Results - Last 24 Hours (Table) 05/27/17 Range/Units 08:19 RBC 3.03 L (3.80-5.40) m/uL Hgb 10.8 L (11.4-16.0) gm/dL Hct 33.6 L (34.0-46.0) % MCV 111.0 H (80.0-100.0) fL MCH 35.5 H (25.0-35.0) pg Plt Count 80 L (150-450) k/uL Lymphocytes # 0.7 L (1.0-4.8) k/uL Assessment and Plan (1) Acute pancreatitis Narrative/Plan: suspect alcohol pancreatitis Current Visit: Yes Status: Acute Code(s): K85.90 - ACUTE PANCREATITIS WITHOUT NECROSIS OR INFECTION, UNSP SNOMED Code(s): 485777147 (2) Hepatitis Narrative/Plan: mild hyperbilirubinemia with elevated AST suspect acute alcohol hepatitis Current Visit: Yes Status: Acute Code(s): K75.9 - INFLAMMATORY LIVER DISEASE , UNSPECIFIED SNOMED Code(s): 830153934 (3) Alcohol abuse Current Visit: Yes Status: Acute Code(s): F10.10 - ALCOHOL ABUSE, UNCOMPLICATED SNOMED Code(s): 71183130 Plan: 1. Agreeable for discharge. Alcohol abstinence was advised. Discharge per medicine. Assessment and plan of care discussed with Dr. Aldana
--- NOTE | 2017-06-02 09:07 | CDI ---
ALCOHOLIC PANCREATITIS Last Revision, April 2017 Documentation Clarification Form Date: 05/27/2017 2:56:00 PM From: Irena Peck RN, CCDS Admit Date: 05/25/2017 1:43:00 PM Patient Name: Valerio Gil Visit Number: [id number] Discharge Date: ATTENTION: The Clinical Documentation Specialists (CDI) and [facility] Coding Staff appreciate your assistance in clarifying documentation. Please respond to the clarification below the line at the bottom and electronically sign. The CDI & [facility] Coding staff will review the response and follow-up if needed. Please note: Queries are made part of the Legal Health Record. If you have any questions, please contact the author of this message via ITS. Dr. Radha Valencia Acute Pancreatitis is documented in your H/P and progress notes. Patient history/risk factors: Alcohol abuse, Former smoker Clinical Indicators: Present with complaints of nausea, vomiting upper abdominal pain with elevated pancreatic enzymes. Ultrasound Abdomen: Hepatic steatosis. there may be tumefactive sludge adherent stone within wht gallbladder. Labs: Lipase 2400, Amylase 181, AST 103, ALT 49, Total Bilirubin 2.3 Vital Signs on admission: 143/97 133 20 97.8 100 % RA Treatment: IV Fluids Ativan IV PRN Zofran IV PRN, Dilaudid IV PRN Thiamine and MVI PO Monitor Lab GI Consult: History of long-standing alcohol abuse, elevated pancreatic enzymes consistent with acute pancreatitis suspect acute alcoholic pancreatitis. In your professional opinion, can the etiology of the Acute Pancreatitis be further specified as one of the following, if known? Etiology Alcohol Pancreatitis Biliary Gallstone Idiopathic Other, please specify Unable to determine Please continue to document in your progress notes and discharge summary in order to capture severity of illness and risk of mortality. Include clinical findings that support your diagnosis. MTDD
--- NOTE | 2017-06-05 10:16 | CDI ---
ACUTE ALCOHOLIC PANCREATITIS Last Revision, April 2017 Documentation Clarification Form Date: 05/27/2017 2:56:00 PM From: Irena Peck Admit Date: 05/25/2017 1:43:00 PM Patient Name: Valerio Gil Visit Number: [id number] Discharge Date: ATTENTION: The Clinical Documentation Specialists (CDI) and [facility] Coding Staff appreciate your assistance in clarifying documentation. Please respond to the clarification below the line at the bottom and electronically sign. The CDI & [facility] Coding staff will review the response and follow-up if needed. Please note: Queries are made part of the Legal Health Record. If you have any questions, please contact the author of this message via ITS. Dr. Radha Valencia Acute Pancreatitis is documented in your H/P and progress notes. Patient history/risk factors: Alcohol abuse, Former smoker Clinical Indicators: Present with complaints of nausea, vomiting upper abdominal pain with elevated pancreatic enzymes. Ultrasound Abdomen: Hepatic steatosis. there may be tunefactive sludge adherent stone within the gallbladder. Labs: Lipase 2400, Amylase 181, AST 103, ALT 49, Total Bilirubin 2.3 Vital Signs on admission: 143/97 133 20 97.8 100 % RA Treatment: IV Fluids Ativan IV PRN Zofran IV PRN, Dilaudid IV PRN Thiamine and MVI PO Monitor Lab GI Consult: History of long-standing alcohol abuse, elevated pancreatic enzymes consistent with acute pancreatitis suspect acute alcoholic pancreatitis. In your professional opinion, can the etiology of the Acute Pancreatitis be further specified as one of the following, if known? Etiology Alcohol Pancreatitis Biliary Gallstone Idiopathic Other, please specify Unable to determine Please continue to document in your progress notes and discharge summary in order to capture severity of illness and risk of mortality. Include clinical findings that support your diagnosis. MTDD
--- NOTE | 2017-06-14 19:18 | DS ---
DISCHARGE SUMMARY DATE OF ADMISSION: 05/25/2017. DATE OF DISCHARGE: 05/28/2017 ADMISSION DIAGNOSES: 1. Acute pancreatitis. 2. Severe anion gap metabolic acidosis. 3. Alcohol abuse. 4. Hypomagnesemia. 5. Hypokalemia. 6. Transaminitis. 7. Hyperbilirubinemia. 8. Acute, most likely prerenal in nature. BRIEF HISTORY: This was a 46-year-old female patient, history of alcohol abuse up to 3-4 weeks ago, came to the hospital with complaint of nausea, vomiting and not able to keep down any food for the few days with severe epigastric abdominal pain radiating to the back. The patient claims the day of admission vomited started and she was basically dry heaving. Admits to drinking alcohol 3-4 times weekly. PAST MEDICAL HISTORY: History of alcohol abuse as described above. MEDICATIONS: The patient is taking no known home medications. PHYSICAL EXAMINATION: The patient's vital signs on admission, temperature 97.8, pulse 133, respiration 20, blood pressure 123/97, O2 saturation 100%. Physical examination: Constitutional: The patient in mild distress patient. HEENT: Atraumatic, normocephalic. Pupils equal and reactive to light. Extraocular movements intact. Buccal mucosa moist. NECK: Supple. No goiter or lymphadenopathy. JVD is negative. No carotid bruit heard. Lungs are clear to auscultate. No rales, rhonchi, or wheezes. Heart is regular rate and rhythm without any murmurs gallop rhythm. ABDOMEN: Soft, nontender, nondistended. Bowel sounds positive. EXTREMITIES: No edema, clubbing or cyanosis. Neurological examination: Cranial nerves 2 thru 12 grossly intact. No gross motor or sensory deficit. LAB DATA: CBC, white blood count of 10.8, hemoglobin 13.6, hematocrit 41.9, and platelet count of 136. Chemical profile sodium 141, potassium 3.2, chloride 89, bicarb 15, BUN 21 , creatinine 1.3, glucose 184. The patient's lipase of 2400. BRIEF HOSPITAL COURSE: Patient was admitted to the ED, was started on IV fluids, pain management was done. The patient was given symptomatic treatment for nausea and vomiting. The patient was started on Thiamin and multivitamin and she was kept n.p.o. Patient was given extensive counseling for alcohol abuse. The patient had slow and protracted response to treatment, but she did continue to ask for a significant amount of pain medications, which were discontinued upon finding patient in acute distress. After that, patient subjectively state she was having marked improvement without any complications. She was then discharged home in stable condition. Again extensive counseling was done to abstain from drinking and the patient agreed. DISCHARGE MEDICATION: 1. Protonix 20 mg p.o. daily. 2. Thiamine 100 mg p.o. DISCHARGE DIAGNOSES: 1. Severe alcohol induced pancreatitis. 2. Hypokalemia. 3. Metabolic acidosis secondary to severe pancreatitis. MMODL / IJN: [id number] / MTDD
== END 2017-05-28 13:59 | disposition home or self-care (01) | DRG 439 ==
LOC: EC 10:02 → SUPCPDRO 10:02 → 5MS5E 13:43
PROVIDERS: ADMIT Hospitalist; ATTEND Hospitalist
PROC: 3E0234Z Introduction of Serum, Toxoid and Vaccine into Muscle, Percutaneous Approach (ICD-10-PCS; principal; 2017-05-25)
DX: K85.20 Alcohol induced acute pancreatitis without necrosis or infection (principal); E87.2 Acidosis; N17.9 Acute kidney failure, unspecified; D69.6 Thrombocytopenia, unspecified; E83.42 Hypomagnesemia; K75.9 Inflammatory liver disease, unspecified; E87.6 Hypokalemia; F10.10 Alcohol abuse, uncomplicated; Z23 Encounter for immunization; K76.0 Fatty (change of) liver, not elsewhere classified; E86.0 Dehydration; R74.0 Nonspecific elevation of levels of transaminase and lactic acid dehydrogenase [LDH]; R03.0 Elevated blood-pressure reading, without diagnosis of hypertension; Z87.891 Personal history of nicotine dependence; Z71.41 Alcohol abuse counseling and surveillance of alcoholic
CPT/HCPCS: 36415; 76705; 80048; 80053; 80076; 81001; 81025; 82150; 82607; 82746; 83690; 83735; 84132; 85025; 90686; 96361; 96365; 96375; 99285

== ENCOUNTER → 2020-01-05 | Outpatient (CLI) | payer MEDICAID, OTHER | END | disposition home or self-care (01) | LOC: LABWHC1 12:37 | PROVIDERS: ATTEND Physician Assistant | DX: R05 Cough (principal); R06.02 Shortness of breath; M79.10 Myalgia, unspecified site | CPT/HCPCS: U0003; C9803 ==

== ENCOUNTER → 2023-07-29 | Outpatient (CLI) | payer OTHER ==
--- NOTE | 2023-07-31 08:40 | MM ---
Reason for Exam: Screening (asymptomatic). Patient History: Menarche at age 11. First Full-Term at age 23. Postmenopausal. Paternal grandmother had breast cancer, age 70. Risk Values: An 5 year model risk: 1.0%. NCI Lifetime model risk: 8.5%. Tissue Density: There are scattered areas of fibroglandular density. Findings: Analyzed By CAD. Heart appears symmetrical. There are scattered punctate calcifications within the bilateral breast. Benign vascular calcification is present. There is focal asymmetry within the 6:00 position middle left breast. Short-term follow-up for stability can be performed. No suspicious groups of microcalcifications, spiculated or lobular masses, architectural distortion or other secondary signs of malignancy are mammographically apparent. Overall Assessment: Probably benign, BI-RAD 3 Management: Diagnostic Mammogram of the left breast in 6 months. A negative mammogram report should not preclude additional follow up of suspicious palpable abnormalities. Patient should continue monthly self breast exam. A clinical breast exam by your physician is recommended on an annual basis and results should be correlated with mammographic findings. Electronically signed and approved by: Chris Linda D.O. Radiologis
== END | disposition home or self-care (01) ==
LOC: RADMAMWWP 09:35 → MERGE 09:45
PROVIDERS: ATTEND Family Medicine
DX: Z12.31 Encounter for screening mammogram for malignant neoplasm of breast (principal); Z78.0 Asymptomatic menopausal state; Z80.3 Family history of malignant neoplasm of breast
CPT/HCPCS: 77063; 77067